=== PATIENT | female | born 1985 | race Caucasian/White ===

== ENCOUNTER 2020-02-14 09:37 | Outpatient (NON) | payer OTHER, SELFPAY ==
[2020-02-14 21:15] LABS: SARS-CoV-2 RNA PCR Negative
== END 2020-02-14 09:38 ==
PROVIDERS: Physician Assistant; Visit Provider Family Medicine
DX: Z20.828 Contact with and (suspected) exposure to other viral communicable diseases (principal); R68.89 Other general symptoms and signs
CPT/HCPCS: 87635; C9803; U0003

== ENCOUNTER 2021-10-26 12:18 | Outpatient (CLI) | payer OTHER, SELFPAY ==
--- NOTE | ~2021-10-26 | CT_ITS ---
EXAMINATION: CT soft tissue neck wo con DATE: 10/26/2021 12:36 INDICATION: Neck mass. TECHNIQUE: Computed tomography (CT) of the neck was performed without intravenous contrast. Automated exposure control and iterative reconstruction technique were employed. The dose-length product was 4 26.24 mGy-cm. COMPARISON: None FINDINGS: There is anteroposterior elongation of left ocular globe. There is mucosal thickening in th e paranasal sinuses. There are no pathologically enlarged lymph nodes. The mastoid air cells are norm al. There is mild cervical spondylosis. IMPRESSION: 1. No abnormal neck mass or lymphadenopathy. Reviewed, dictated and finalized at location A.
== END 2021-10-26 12:19 ==
LOC: MICIMG 12:19
PROVIDERS: PCP Family Medicine; Visit Provider Family Medicine
DX: R22.1 Localized swelling, mass and lump, neck (principal)
CPT/HCPCS: 70490

== ENCOUNTER 2022-04-21 10:10 | Outpatient (CLI) | payer OTHER, SELFPAY ==
--- NOTE | ~2022-04-21 | CT_ITS ---
EXAMINATION: CT abdomen pelvis wo/w con DATE: 04/21/2022 10:57 INDICATION: Ureteral calculus, renal cyst TECHNIQUE: Computed tomography (CT) of the abdomen and pelvis was performed without intravenous contr ast. CT of the abdomen and pelvis was then performed with a total of 130 mL Omnipaque 350 intravenous contrast using a double-bolus technique for simultaneous opacification of the renal parenchyma and r enal collecting system. The dose-length product (DLP) was 1152.05 mGy-cm. Automated exposure control and iterative reconstruction technique were employed. COMPARISON: None FINDINGS: Minimal dependent atelectasis is present in the lung bases. The heart size is normal. A 4 m m nodule in the right lower lobe likely represents old granulomatous disease. Cysts of the liver cassandra ure up to 6 mm. The spleen, pancreas, gallbladder, and adrenal glands are normal. No stones are ident ified in the kidneys, ureters, or bladder. No hydronephrosis or hydroureter. There is a 2.9 x 1.9 cm mass of the right kidney upper pole which demonstrates borderline enhancement after contrast administ ration. Small cysts of the kidneys measure up to 9 mm on the left. No pathologically enlarged abdomin al or pelvic lymph nodes are identified. There is no free intraperitoneal gas or evidence of bowel ob struction. The appendix is normal. IMPRESSION: 1. 2.9 cm solid mass versus proteinaceous cyst of the right kidney upper pole. Follow-up CT or MRI wi thout and with contrast in six months is recommended. No urolithiasis identified. Reviewed, dictated and finalized at location B. OND SETTER APPRENTICE IMPRESSION: 1. 2.9 cm solid mass versus proteinaceous cyst of the right kidney upper pole. Follow-up CT or MRI without and with contrast in six months is recommended. No urolithiasis identified.
[2022-04-21 10:37] LABS: Estimated Glomerular Filt Rate > 60
== END 2022-04-21 10:11 ==
PROVIDERS: PCP Family Medicine; Visit Provider Urology
DX: N20.1 Calculus of ureter (principal)
CPT/HCPCS: 74178; Q9967

== ENCOUNTER 2022-05-10 13:37 | Outpatient (CLI) | payer OTHER, SELFPAY ==
--- NOTE | ~2022-05-10 | MR_ITS ---
EXAMINATION: MR abdomen wo/w con INDICATION: Acquired complex renal cyst TECHNIQUE: Coronal SSFSE ARC, WATER:coronal LAVA-FLEX, Coronal 2D FIESTA FatSat, Axial SSFSE BH ARC, Axial 3D DualEcho BH, Axial SSFSE-IR, Axial DWI b=500, Axial 2D FIESTA FatSat, pre and dynamic postco ntrast Axial LAVA ARC, postcontrast Coronal In and Opposed phase LAVA FLEX COMPARISON: CT, 04/21/2022 CONTRAST: Multihance, 15 cc FINDINGS: There are multiple tiny cysts of the liver which measure up to 5 mm. The spleen, pancreas, gallbladder, and adrenal glands are normal. There is a 2.9 x 2.1 cm T1 hyperintense, T2 hypointense m ass of the right kidney upper pole which does not demonstrate enhancement after contrast administrati on. Simple cysts of the kidneys measure up to 1.6 cm on the left. There are no pathologically enlarge d abdominal lymph nodes. No dilated loops of bowel are identified. There is no hydronephrosis or hydr oureter. No abnormal enhancement is identified after contrast administration. IMPRESSION: 1. Hemorrhagic cyst of the right kidney upper pole corresponding to the mass in question on recent CT . Reviewed, dictated and finalized at location B. IFIED ATHLETIC TRAINER IMPRESSION: 1. Hemorrhagic cyst of the right kidney upper pole corresponding to the mass in question on recent CT.
== END 2022-05-10 13:38 ==
LOC: MICIMG 13:38
PROVIDERS: PCP Family Medicine; Visit Provider Urology
DX: N28.1 Cyst of kidney, acquired (principal)
CPT/HCPCS: 74183; A9577

== ENCOUNTER 2022-05-14 02:03 | Day surgery (SDC) | payer OTHER, SELFPAY ==
[2022-05-04 15:05] VITALS: BMI 28.8
--- NOTE | 2022-05-04 15:10 | PC.NURSE ---
Report to the Outpatient Waiting Room, entrance under the green pavilion located off [facility], at time 1230 on date 05/14/22. Planned Procedure Time: 1430. Time changes happen often and if your time is changed the preop area will call you the afternoon before. - You and your visitor will be asked to self-screen and do not enter if you have any COVID symptoms. - Only one visitor is requested with a max of two and NO children visitors are allowed at this time. - The patient visitor may be requested to leave or wait in car when not with patient due to distancing restrictions. - A mask is optional within the hospital at this time. Patients may have clear liquids (water, carbonated beverages, clear teas, apple juice) until 3 hours prior to surgery with a maximum of 20 ounces. - No food from midnight until time of surgery Take the following medications with a SIP of water the morning of surgery: BUPROPION DO NOT STOP ANY OF YOUR OTHER PRESCRIPTION MEDICATIONS PRIOR TO SURGERY EXCEPT THE FOLLOWING Medications to discontinue per physician: N/A Date to take last dose: N/A Please no make-up, nail faroese, hairspray, perfume, deodorant, or body powder the day of surgery. No jewelry (including any body piercings) or valuables the day of surgery, leave them at home. Please take a shower or bath the night before, or the morning of, surgery with an antibacterial soap. Wear comfortable, loose fitting clothing. - Jewelry must be removed prior to entering the operating room. Rings and piercings that are not removed may be cut off. - The hospital will not accept responsibility for valuables. - Please leave all valuables, including medications, at home the day of surgery. If you are going home after surgery, a licensed hammer driver must drive you home. - NO public transportation without another adult if you receive anesthesia. - We recommend that an adult stay with you for 24 hours following discharge. - We also recommend that you do not drive, make important decision, drink alcoholic beverages, or take any drugs that were not prescribed by your health care provider for at least 24 hours after your discharge time. Follow any additional instructions given to you from your surgeon. If you or anyone in your household have experienced Covid symptoms in the past week, please notify your surgeon or the nurse liaison at the phone number below for possible testing. Telephone instructions given to PT - GERHARD JENKINS and asked if any additional questions and then verbalized understanding. Patient advised to call surgeon office or pre surgery nurse liaison [phone] if any additional questions.
--- NOTE | 2022-05-11 11:43 | P.HP_ITS ---
H&P: HPI History of Present Illness Date/Time: 05/11/22 11:43 Chief Complaint: Desires permanent sterilization Narrative: A 37-year-old 1 para 1 admitted for laparoscopic tubal ligation secondary to desired permanent sterilization. She understands this to be permanent irreversible. Alternatives including but not exclusive of pills, patches, injections, implants etc. were reviewed. The a rate of 06/999 given. Risks and benefits of the procedure were reviewed as well. She received the ACOG handout entitled sterilization for men and women. She had all questions answered. She asked to proceed [facility] Family History Family History Grandparent Family history of malignant neoplasm of breast Mother Patient's mother is in good health Father Patient's father is in good health Sibling Patient's brother is in good health Social History Social History Social History: Single Smoking status: Never smoker Second hand tobacco smoke exposure: No Alcohol intake: current Alcohol use details: 2/MONTH Substance use: never Substance use type: does not use Living arrangements: with family Additional living arrangements comments: SON Occupation/Education: occupation Gender identity (if verbalized by the patient): Female Sexual Orientation (if Verbalized by the Patient): Straight or Heterosexual Spiritual care concerns: No Meds Home Medications and Allergies Home Medications Medication Instructions Recorded Confirmed Type norethindrone 1 mg-ethinyl 1 tablet PO DAILY 09/18/20 05/04/22 History estradiol 35 mcg tablet (Nortrel) dextroamphetamine-amphetamine ER 10 mg PO DAILY #30 caps 04/16/22 05/04/22 Rx 10 mg 24hr capsule,extend release (Adderall XR) bupropion HCl 100 mg tablet,12 hr 100 mg PO BID #60 tabs 05/01/22 05/04/22 Rx sustained-release (Wellbutrin SR) Allergies Allergy/AdvReac Type Severity Reaction Status Date / Time No Known Allergies Allergy Verified 05/04/22 15:04 Exam Const: General: cooperative, healthy appearing, comfortable and average body habitus Orientation/consciousness: oriented to person, oriented to place and oriented to time HENMT: Head: normal to inspection Resp: Effort & Inspection: normal respiratory effort Cardio: Rate: regular rate Rhythm: regular rhythm Heart sounds: S1 normal heart sound present and S2 normal heart sound present GI: Inspection: normal to inspection : External Female Exam: normal external appearance Speculum Exam - Vagina: normal appearance of the vagina Speculum Exam - Cervix: normal appearance of the cervix Bimanual exam- vagina & uterus: non-tender Bimanual Exam- Adnexa, other: normal adnexae Assessment and Plan Assessment and plan (1) Sterilization: Code(s): Z30.2 - Encounter for sterilization Status: Acute Plan Laparoscopic bilateral tubal ligation
[2022-05-14] VITALS (12 sets, daily range): BP systolic 119–172; BP diastolic 80–107; PULSE 74–99; RESP 12–20; TEMP 36.3–37.3; O2SAT 94–100
--- NOTE | 2022-05-14 06:41 | WPDHPUPDATE1 ---
History and Physical Update Update Date/Time: 05/14/22 06:41 History and Physical has been reviewed, including an updated exam of the patient. There are NO changes in the patient's condition. Risks, benefits, and alternatives have been discussed and questions answered. Patient agrees to proceed with procedure.
[2022-05-14] MEDS: ACETAMINOPHEN 500 MG TABLET 1000 MG PO (12:05)
[2022-05-14] MEDS: LACTATED RINGERS 1,000 ML 30 ML IV CONT ×2 (12:10→15:40)
[2022-05-14] MEDS: KETOROLAC 15 MG/ML VIAL (*BKC) IV PUSH ×2 (12:11→18:01)
--- NOTE | 2022-05-14 14:34 | P.PNAN_ITS ---
Anes - Initial Pre Proc Eval Procedure: Operation Date: 05/14/22 14:30 Proposed Procedures p Laparoscopic Bilateral Tubal Sterilization - Eloy Olivera MD Date/Time: 05/14/22 14:34 Surgeon: Eloy Olivera MD Pre Op Diagnosis: Desires Sterilization Patient Data Age: 37 Gender: F Height: 1.56 m Weight: 67 kg Last Vital Signs Temp 37.3 C 05/14/22 11:46 Pulse 99 05/14/22 11:46 Resp 20 05/14/22 11:46 BP 119/80 05/14/22 11:46 Pulse Ox 98 05/14/22 11:46 O2 Del Method Room Air 05/14/22 11:46 Allergies Allergy/AdvReac Type Severity Reaction Status Date / Time No Known Allergies Allergy Verified 05/04/22 15:04 Home Medications Medication Instructions Recorded Confirmed Type norethindrone 1 mg-ethinyl 1 tablet PO DAILY 09/18/20 05/14/22 History estradiol 35 mcg tablet (Nortrel) dextroamphetamine-amphetamine ER 10 mg PO DAILY #30 caps 04/16/22 05/14/22 Rx 10 mg 24hr capsule,extend release (Adderall XR) bupropion HCl 100 mg tablet,12 hr 100 mg PO BID #60 tabs 05/01/22 05/14/22 Rx sustained-release (Wellbutrin SR) hydrocodone 5 mg-acetaminophen 325 1 tablet PO Q4H PRN pain #20 tabs 05/14/22 Rx mg tablet Patient hx anesthesia problems: none Family hx anesthesia problems: none Results Review: All pre-operative results and documents have been reviewed as part of the pre- operative evaluation. [facility] Past Medical History Medical History (Updated 05/14/22 @ 14:34 by Eloy Ashby MD) Anxiety Family History Family History Grandparent Family history of malignant neoplasm of breast Mother Patient's mother is in good health Father Patient's father is in good health Sibling Patient's brother is in good health Social History Social History Social History: Single Smoking status: Never smoker Second hand tobacco smoke exposure: No Alcohol intake: current Alcohol use details: 2/MONTH Substance use: never Substance use type: does not use Living arrangements: with family Additional living arrangements comments: SON Occupation/Education: occupation Gender identity (if verbalized by the patient): Female Sexual Orientation (if Verbalized by the Patient): Straight or Heterosexual Spiritual care concerns: No Anes - Eval Final PreProcedure Day of Procedure 05/14/22 14:34 Patient weight: overweight Heart: regular rate and rhythm Lungs: clear to auscultation Airway: Mallampati scale class II Neurological: alert and oriented Last oral intake: >/= 8 hours ASA classification: II Emergent: no Anesthetic plan: proceed Anesthesia type and monitoring: general ETT and standard monitoring Results Review: All pre-operative results and documents have been reviewed as part of the pre- operative evaluation. Informed Consent: The patient's anesthetic plan and its attendant risks and benefits were discussed with the patient/family/POA. Questions were solicited and answers provided to the satisfaction of the patient/family/POA.
--- NOTE | 2022-05-14 15:26 | W.PM.PROC2 ---
Procedure Note - Detailed Date of Procedure 05/14/22 Pre-op Diagnosis Desires Sterilization Post-op Diagnosis Same Procedure Performed Laparoscopic bilateral tubal ligation with silastic ring Surgeon Eloy Olivera MD Anesthesia General Indications say 37-year-old female desires permanent sterilization Findings ovaries tubes Description of Procedure patient is prepped draped sterile fashion placed in dorsal lithotomy position a anesthesia weighted speculum placed in posterior fornix vagina. Anterior lip of the cervix grasped with single-tooth tenaculum. The Quinn's cannula was inserted the cervix. The 2 were joined to be used later for uterine relation. Bladder emptied of clear urine in the weighted speculum was removed. Gloves were changed An infraumbilical incision made the Veress needle passed in the abdomen. Abdomen filled with CO2 gas [id number]. The 5mm trocar advanced under direct visualization assuring no injury. The patient placed in Trendelenburg and a suprapubic incision made. The 8mm trocar advanced under direct visualization assuring no injury. The uterus ovaries and tubes were within normal limits and photo documentation was undertaken. The right fallopian tube was grasped with midportion and a good knuckle of tube formed using a silastic band. Excellent placement was seen with good blanching. The left fallopian tube was then grasped and a good knuckle of tube formed with a silastic band and good blanching was seen there. Photo documentation under the gas removed from the abdomen. The lower site removed. The incisions closed with 4-0 Monocryl and glue. The patient was awakened went to recovery in satisfactory condition. All sponge, needle, instrument counts were correct. There were no immediate complications noted Estimated Blood Loss 5 Drains No Packing No Pathology None sent Complications No immediate complications Condition Stable Disposition PACU
[2022-05-14] MEDS: fentaNYL CITRATE INJ (*CRX) 100 MCG/2 ML VIAL 25 MCG IV PUSH ×8 (15:55→16:20)
[2022-05-14] MEDS: ONDANSETRON INJ 4 MG/2 ML VIAL IV PUSH (16:00)
[2022-05-14] MEDS: HYDROmorphone HCL INJ (*CRX) 1 MG/ML SYR 0.5 MG IV PUSH ×4 (16:23→17:07)
[2022-05-14] MEDS: oxyCODONE HCL (*CRX) 5 MG TAB IR PO (17:46)
== END 2022-05-14 18:40 | disposition home or self-care (01) ==
PROVIDERS: PCP Family Medicine; Visit Provider Obstetrics & Gynecology
PROC: (CPT 58671; principal; 2022-05-14 14:30)
DX: Z30.2 Encounter for sterilization (principal); F41.9 Anxiety disorder, unspecified
CPT/HCPCS: 58671; A4264; A9270; J0330; J1100; J1170; J1885; J2250; J2405; J2704; J3010; J7030; J7120

== ENCOUNTER 2023-12-29 12:46 | Outpatient (CLI) | payer OTHER, SELFPAY ==
[2023-12-29 14:04] LABS: Hemoglobin 13.8 g/dL (12.0-15.0)
== END 2023-12-29 12:47 | disposition home or self-care (01) ==
PROVIDERS: PCP Family Medicine; Visit Provider Obstetrics & Gynecology
DX: R58 Hemorrhage, not elsewhere classified (principal)
CPT/HCPCS: 36415; 85014; 85018

== ENCOUNTER 2024-01-06 00:32 | Day surgery (SDC) | payer OTHER, SELFPAY ==
--- NOTE | 2023-12-27 15:38 | SUR.PREOP ---
Report to the Outpatient Waiting Room, entrance under the green pavilion located off [facility], at time _1:30pm_ on date _01/06/24_. Planned Procedure Time: _3:30pm_.? Time changes happen often and if your time is changed the preop area will call you the afternoon before. - You and your visitor will be asked to self-screen and do not enter if you have any COVID symptoms. Please call surgeon if you need to reschedule. - A mask is optional within the hospital at this time. Patients may have clear liquids (water, carbonated beverages, clear teas, apple juice) until 3 hours prior to surgery with a maximum of 20 ounces. - No food from midnight until time of surgery and no smoking - Infants may have breast milk until 4 hours before surgery, infant formula 6 hours prior to surgery. - Children will be allowed to drink immediately following surgery.? If applicable, please bring a bottle or sippy cup to assist with drinking. Juice, water, soda, and popsicles are readily available.? For infants on formula, please bring formula the day of surgery.? Pacifiers are allowed. Take only the following medications with a SIP of water on the morning of surgery: _bupropion__ DO NOT STOP ANY OF YOUR OTHER PRESCRIPTION MEDICATIONS PRIOR TO SURGERY EXCEPT THE FOLLOWING Medications to discontinue per physician __ibuprofen __ Date to take last dose_Per Dr. Juvencio Olivera_ Please no make-up, nail swiss, hairspray, perfume, deodorant, or body powder the day of surgery.? No jewelry (including any body piercings) or valuables the day of surgery, leave them at home.? Please take a shower or bath the night before, or the morning of, surgery with an antibacterial soap.? Wear comfortable, loose fitting clothing.? Children are encouraged to wear pajamas. - Jewelry must be removed prior to entering the operating room.? Rings and piercings that are not removed may be cut off. - The hospital will not accept responsibility for valuables.? - Please leave all valuables, including medications, at home the day of surgery. If you are going home after surgery, a licensed truck driver supervisor must drive you home.? - NO public transportation without another adult if you receive anesthesia. - We recommend that an adult stay with you for 24 hours following discharge. - We also recommend that you do not drive, make important decision, drink alcoholic beverages, or take any drugs that were not prescribed by your health care provider for at least 24 hours after your discharge time. For Pediatric surgeries, we recommend two adults accompany the child home. Follow any additional instructions given to you from your surgeon. Telephone instructions given to _Beatriz Manuel_and asked if any additional questions and then verbalized understanding. Patient advised to call surgeon office or pre surgery nurse liaison [phone] if any additional questions.
[2023-12-27 16:10] VITALS: BMI 25.1
--- NOTE | 2024-01-04 16:31 | PM.IMHP ---
H&P: HPI History of Present Illness Date/Time: 01/04/24 16:31 Chief Complaint: Heavy bleeding Narrative: 38-year-old 1 para 1 admitted for hysteroscopy/dilatation curettage/Rosana ablation. She is status post tubal ligation. She has poor candidate for oral contraception and has not done well with Nortrel control. She will undergo the above-named procedures. Risks and benefits reviewed including but not exclusive of , aspiration pneumonia, bleeding, transfusion, perforation injury to bowel, bladder, ureters, or other interval organs with need for open laparotomy. She received the ACOG handouts entitled hysteroscopy and dilatation curettage respectively. She also received the Rosana handout. She had all questions answered. She asked to proceed [facility] Past Medical History Medical History Anxiety Family History Family History Grandparent Family history of malignant neoplasm of breast Mother Patient's mother is in good health Father Patient's father is in good health Sibling Patient's brother is in good health Social History Social History Social History: Single Smoking status: Never smoker Second hand tobacco smoke exposure: No Alcohol intake: current Alcohol use details: socially; less than one a week on average Substance use: never Substance use type: does not use Living arrangements: with family Additional living arrangements comments: with son Occupation/Education: occupation Gender identity (if verbalized by the patient): Female Sexual Orientation (if Verbalized by the Patient): Straight or Heterosexual Spiritual care concerns: No Meds Home Medications and Allergies Home Medications Medication Instructions Recorded Confirmed Type bupropion HCl 300 mg 24 hr tablet, 300 mg PO QAM #90 tabs 03/23/23 12/27/23 Rx extended release (Wellbutrin XL) ibuprofen 400 mg tablet 400 mg PO Q6H PRN Cramps 12/27/23 12/27/23 History norethindrone 1 mg-ethinyl See Rx Instructions .Route .COMPLEX 12/27/23 12/27/23 History estradiol 35 mcg tablet (Nortrel) Allergies Allergy/AdvReac Type Severity Reaction Status Date / Time No Known Allergies Allergy Verified 12/27/23 15:57 Exam Const: General: cooperative, healthy appearing, comfortable and average body habitus Orientation/consciousness: oriented to person, oriented to place and oriented to time Resp: Effort & Inspection: normal respiratory effort Cardio: Rate: regular rate Rhythm: regular rhythm Heart sounds: S1 normal heart sound present and S2 normal heart sound present GI: Inspection: normal to inspection : External Female Exam: normal external appearance Speculum Exam - Vagina: normal appearance of the vagina Speculum Exam - Cervix: normal appearance of the cervix Bimanual exam- vagina & uterus: enlarged Bimanual Exam- Adnexa, other: normal adnexae Assessment and Plan Assessment and plan (1) Excessive bleeding: Code(s): R58 - Hemorrhage, not elsewhere classified Status: Acute Assessment and Plan: Hysteroscopy/dilatation curettage/the nerve ablation
--- NOTE | 2024-01-06 06:36 | WPDHPUPDATE1 ---
History and Physical Update Update Date/Time: 01/06/24 06:36 History and Physical has been reviewed, including an updated exam of the patient. There are NO changes in the patient's condition. Risks, benefits, and alternatives have been discussed and questions answered. Patient agrees to proceed with procedure.
[2024-01-06 11:37] VITALS: BP 124/83; PULSE 71; RESP 16; TEMP 36.4; O2SAT 100
[2024-01-06] MEDS: LACTATED RINGERS 1,000 ML 30 ML IV CONT ×2 (11:45→13:54)
--- NOTE | 2024-01-06 13:05 | P.PNAN_ITS ---
Anes - Initial Pre Proc Eval Procedure: Operation Date: 01/06/24 13:30 Proposed Procedures p Hysteroscopy Dilation and Curettage, with Rosana Endometrial Ablation - Eloy Olivera MD Date/Time: 01/06/24 13:05 Surgeon: Eloy Olivera MD Pre Op Diagnosis: excessive bleeding Patient Data Age: 38 Gender: F Height: 1.56 m Weight: 59.55 kg Last Vital Signs Temp 97.6 F 01/06/24 11:37 Pulse 71 01/06/24 11:37 Resp 16 01/06/24 11:37 BP 124/83 01/06/24 11:37 Pulse Ox 100 01/06/24 11:37 O2 Del Method Room Air 01/06/24 11:37 Allergies Allergy/AdvReac Type Severity Reaction Status Date / Time No Known Allergies Allergy Verified 01/06/24 12:42 Home Medications Medication Instructions Recorded Confirmed Type bupropion HCl 300 mg 24 hr tablet, 300 mg PO QAM #90 tabs 03/23/23 01/06/24 Rx extended release (Wellbutrin XL) ibuprofen 400 mg tablet 400 mg PO Q6H PRN Cramps 12/27/23 01/06/24 History norethindrone 1 mg-ethinyl See Rx Instructions .Route .COMPLEX 12/27/23 01/06/24 History estradiol 35 mcg tablet (Nortrel) hydrocodone 5 mg-acetaminophen 325 1 tablet PO Q4H PRN pain #20 tabs 01/06/24 Rx mg tablet Patient hx anesthesia problems: none Family hx anesthesia problems: none Results Review: All pre-operative results and documents have been reviewed as part of the pre- operative evaluation. [facility] Past Medical History Medical History Anxiety Family History Family History Grandparent Family history of malignant neoplasm of breast Mother Patient's mother is in good health Father Patient's father is in good health Sibling Patient's brother is in good health Social History Social History Social History: Single Smoking status: Never smoker Second hand tobacco smoke exposure: No Alcohol intake: current Alcohol use details: socially; less than one a week on average Substance use: never Substance use type: does not use Living arrangements: with family Additional living arrangements comments: with son Occupation/Education: occupation Gender identity (if verbalized by the patient): Female Sexual Orientation (if Verbalized by the Patient): Straight or Heterosexual Spiritual care concerns: No Anes - Eval Final PreProcedure Day of Procedure 01/06/24 13:05 Patient weight: normal Heart: regular rate and rhythm Lungs: clear to auscultation Airway: Mallampati scale class II Neurological: alert and oriented Last oral intake: >/= 8 hours ASA classification: II Emergent: no Anesthetic plan: proceed Anesthesia type and monitoring: general GIVS and standard monitoring Results Review: All pre-operative results and documents have been reviewed as part of the pre- operative evaluation. Informed Consent: The patient's anesthetic plan and its attendant risks and benefits were discussed with the patient/family/POA. Questions were solicited and answers provided to the satisfaction of the patient/family/POA.
[2024-01-06] MEDS: LIDOCAINE HCL 1% LOCAL INJ 20 ML VIAL 10 ML INFILTRATE (13:43)
--- NOTE | 2024-01-06 13:53 | W.PM.PROC2 ---
Procedure Note - Detailed Date of Procedure 01/06/24 Pre-op Diagnosis excessive bleeding Post-op Diagnosis Same Procedure Performed Hysteroscopy / dilatation curettage/Rosana ablation Surgeon Eloy Olivera MD Anesthesia MAC and Local Indications 38-year-old female multiparous status post tubal ligation with bleeding refractory to medical therapy Findings uterus sounded to 8cm. Thick irregular endometrial tissue. Description of Procedure Patient was prepped and draped in the sterile fashion placed dorsal sedation weighted speculum placed in the posterior fornix of. Anterior lip of cervix a single-tooth uterus is noted retroverted and sounded 8cm. Serial dilatation with fragmented dilators performed followed by passage of PDA hysteroscope. No abnormalities were seen the uterus had irregular evidence of or other the uterus was scraped over the entire 360? removing a moderate amount of tissue. These instruments removed the Rosana instrument was placed at the appropriate settings and burned for 120seconds. The Rosana instrument was removed and the hysteroscope removed and replaced and a good burn was seen. The instruments withdrawn the patient went recovery in satisfactory condition. All sponge, needle, instrument counts were correct. There were no immediate complications Estimated Blood Loss 5 Drains No Packing No Pathology Yes Complications No immediate complications Condition Stable Disposition PACU
[2024-01-06 13:54] VITALS: BP 137/97; PULSE 92; RESP 14; O2SAT 98
[2024-01-06 14:18] VITALS: BP 127/86; PULSE 97; RESP 16; O2SAT 99
[2024-01-06 14:44] VITALS: BP 106/95; PULSE 87; RESP 16; O2SAT 100
[2024-01-09 14:24] LABS: BEDSIDEPREGUCG Negative (Negative)
== END 2024-01-06 15:04 | disposition home or self-care (01) ==
PROVIDERS: PCP Family Medicine; Visit Provider Obstetrics & Gynecology
PROC: 0U5B8ZZ Destruction of Endometrium, Via Natural or Artificial Opening Endoscopic (ICD-10-PCS; CPT 58563; principal; 2024-01-06 13:30)
DX: N92.0 Excessive and frequent menstruation with regular cycle (principal); F41.9 Anxiety disorder, unspecified
CPT/HCPCS: 58563; 88305; A9270; J1100; J2250; J2405; J2704; J3010; J7030; J7120

== ENCOUNTER 2024-05-07 11:51 | Outpatient (CLI) | payer OTHER, SELFPAY ==
--- NOTE | ~2024-05-07 | MM_ITS ---
EXAMINATION: MM screening lanny BI w claudia HISTORY: Screening TECHNIQUE: Craniocaudal and mediolateral oblique 3-D tomosynthesis images were obtained and synthetic 2-D images were generated. CAD analysis was submitted and interpreted. COMPARISON: No prior mammogram is available for comparison at this institution. BREAST PARENCHYMAL COMPOSITION: Dense: The breasts are extremely dense, which lowers the sensitivity of mammography. FINDINGS: There are asymmetries of both breasts, most prominent centrally in the left breast on CC vi ew and medially in the right breast on CC view. There are no suspicious calcifications or architectur al distortion. IMPRESSION: 1. Bilateral breast asymmetries. 2. Additional mammographic views and possible breast ultrasound are recommended. BI-RADS Category 0: Incomplete: Needs additional imaging evaluation. Reviewed, dictated and finalized at location A. AURANT WORKER IMPRESSION: 1. Bilateral breast asymmetries. 2. Additional mammographic views and possible breast ultrasound are recommended . BI-RADS Category 0: Incomplete: Needs additional imaging evaluation.
== END 2024-05-07 11:52 | disposition home or self-care (01) ==
PROVIDERS: PCP Family Medicine; Visit Provider Obstetrics & Gynecology
DX: Z12.31 Encounter for screening mammogram for malignant neoplasm of breast (principal); R92.8 Other abnormal and inconclusive findings on diagnostic imaging of breast
CPT/HCPCS: 77063; 77067

== ENCOUNTER 2024-05-30 09:52 | Outpatient (CLI) | payer OTHER, SELFPAY ==
--- NOTE | ~2024-05-30 | MMUS_ITS ---
EXAMINATION: MM diagnostic lanny BI w claudia, US breast BI complete HISTORY: Follow-up breast asymmetries TECHNIQUE: Additional 3-D tomosynthesis images of the breasts were performed and synthetic 2-D images were generated. CAD analysis was submitted and interpreted. High resolution bilateral complete breas t ultrasound was performed. COMPARISON: 05/07/2024 BREAST PARENCHYMAL COMPOSITION: Dense: The breasts are extremely dense, which lowers the sensitivity of mammography. FINDINGS: MAMMOGRAPHIC FINDINGS: There are no suspicious masses, calcifications or architectural distortion in either breast to sugges t malignancy. Bilateral breast asymmetries compress with spot views, compatible with superimposed fib roglandular tissue. ULTRASOUND: Complete US of all 4 quadrants of the breast/s and retroareolar region was reviewed. Normal heterogen eous echotexture without focal solid or cystic mass. IMPRESSION: 1. No evidence for malignancy in either breast. 2. Routine yearly screening mammogram and regular clinical breast examination are recommended. BI-RADS Category 1: Negative Reviewed, dictated and finalized at location B. [place] SALESPERSON IMPRESSION: 1. No evidence for malignancy in either breast. 2. Routine yearly screening mammogram and regular clinical breast examination a re recommended. BI-RADS Category 1: Negative
== END 2024-05-30 09:53 | disposition home or self-care (01) ==
LOC: MICIMG 09:53
PROVIDERS: PCP Family Medicine; Visit Provider Obstetrics & Gynecology
DX: R92.8 Other abnormal and inconclusive findings on diagnostic imaging of breast (principal)
CPT/HCPCS: 76641; 77062; 77066; G0279

== ENCOUNTER 2025-02-14 12:18 | Outpatient (CLI) | payer OTHER, SELFPAY ==
--- OUTSIDE RECORDS SUMMARY | 1999-08-18 09:45 | XMS_ITS | Continuity of Care Document ---
Author Organization [facility] Address [address] [place] [address] Phone Care Team Providers Care Medical Billing Specialist Name Role Phone Palacio OD, Trent Unavailable Unavailable Advance Directives Directive Yes / No Effective Date File Name No Information Encounters Encounter Description Practice Location Reason(s) For Visit Diagnoses Date Provider Providers Copied on Encounter [facility], [address], [place], [place], [id number], [place] tel:[phone] [facility] No Information May-0 9-200 0 Palacio OD Trent. [address] , [address], [place], [address], [place]. tel:[phone] Family History Family Member Type Diagnosis Age At Onset No Information Payers Payer name Insurance type Covered democrat ID Authoriza tion(s) No Information Social History Type Description Quantity Date Captured Comments Sex Female Smoking Status No Information Chief Complaint And Reason For Visit No Information Reason For Referral Reason For Referral No Information History Of Present Illness Encounter Date Complaint History Of Prese nt Illness No Information Functional Status Date Functional Assessmen t No Information Instructions Date Instruction Additional Infor mation No Information Assessments Type Assessment Date No Information Patient Care Teams Name Effective Dates (start - stop) Status Members No Information
--- OUTSIDE RECORDS SUMMARY | 2016-10-20 18:00 | XMS_ITS | Continuity of Care Document ---
Author Organization [facility] Address [address] [place] [address] Phone Care Team Providers Care Pantograph Ii Engraver Name Role Phone Unavailable Unavailable Unavailable Advance Directives Directive Yes / No Effective Date File Name No Information Encounters Encounter Description Practice Location Reason(s) For Visit Diagnoses Date Provider Providers Copied on Encounter [facility], [address] [facility], [place], [place], [id number], [place] tel:[phone] [facility] No Information 7 No Information Referring Provider: JOSE Hale, [address], [place], [address]. tel:[phone] Family History Family Member Type Diagnosis Age At Onset No Information Payers Payer name Insurance type Covered libertarian ID Authoriza tion(s) [facility] POS [id number] CI [id number] Social History Type Description Quantity Date Captured Comments Sex Female Smoking Status No Information Chief Complaint And Reason For Visit No Information History Of Present Illness Encounter Date Complaint History Of Prese nt Illness No Information Instructions Date Instruction Additional Infor mation No Information Assessments Type Assessment Date No Information
[2025-02-14 14:21] LABS: Hematocrit 42.0 % (37.0-47.0); Hemoglobin 13.1 g/dL (12.0-15.0); Immature Granulocyte Percent A 0.4 % (0-0.5); Lymphocytes Absolute Auto 2.66 K/mm3 (0.9-3.2); Mean Corpuscular HGB Conc 31.2 g/dl (32-36); Mean Corpuscular Hemoglobin 28.4 pg (26-34); Mean Corpuscular Volume 91.1 fl (80-100); Nucleated Red Blood Cells Absolute Auto 0.000 K/mm3 (0.0-0.012); Nucleated Red Blood Cells Perc 0.0 % (0.0-0.2); Platelet Count Result 343 k/mm3 (150-375); Red Blood Count 4.61 M/mm3 (4.2-5.4); White Blood Count 11.0 K/mm3 (4.5-10.0)
[2025-02-14 14:43] LABS: Negative Monotest Control Negative (Negative); Positive Monotest Control Positive (Positive)
[2025-02-14 14:58] LABS: Alanine Aminotransferase 15 U/L (6-35); Albumin Level 4.3 g/dL (3.5-5.1); Alkaline Phosphatase 53 U/L (38-126); Anion Gap 8 mmol/L (4-12); Aspartate Amino Transferase 25 U/L (14-36); Bilirubin,Total 0.4 mg/dL (0.2-1.3); Blood Urea Nitrogen 8 mg/dL (7-17); Calcium 8.8 mg/dL (8.4-10.2); Carbon Dioxide 24 mmol/L (22-30); Chloride 103 mmol/L (98-107); Estimated Glomerular Filt Rate > 60; Glucose 64 mg/dL (65-110); Potassium 3.8 mmol/L (3.4-5.0); Sodium 135 mmol/L (137-145); Total Protein 7.3 g/dL (6.3-8.2)
[2025-02-14 15:30] LABS: Thyroid Stimulating Hormone 1.230 uIU/mL (0.465-4.680)
[2025-02-14 16:06] LABS: Vitamin B12 269.0 pg/mL (239-931)
--- OUTSIDE RECORDS SUMMARY | 2025-02-14 19:30 | XMS_ITS | Clinical Summary ---
Author Organization [facility] Address [address] [place] [address] Phone Care Team Providers Care Jewel Supervisor Name Role Phone Myra Do MD Primary Care Provider [phone] Allergies No known active allergies Medications amoxicillin (AMOXIL) 875 mg tablet Take 1 Tablet (875 mg) by mouth every 12 hours. 20 Tablet 08/06/2016 Active fluconazole (DIFLUCAN) 150 mg tablet Take 1 Tablet (150 mg) by mouth daily. 1 Tablet 2 08/06/2016 Active Active Problems Problem Noted Date Diagnosed Date Cervical high risk HPV (human papillomavirus) te st positive 06/01/2016 Family history of breast cancer 09/24/2015 Comments Yes Family History Medical History Relation Name Comments Healthy Father Breast Cancer Maternal Grandmother Breast Cancer Mother 55 Cancer Mother bladder Breast Cancer Paternal Grandmother Relation Name Status Comments Father Alive Maternal Grandmother Mother Alive Paternal Grandmother Social History Tobacco Use Types Packs/Day Years Used Date Smoking Tobacco: Never Smokeless Tobacco: Never Tobacco Cessation:Counseling Given: Yes Alcohol Use Standard Drinks/Week Comments Yes 0 (1 standard drink = 0.6 oz pur e alcohol) Comments Yes Sex and Gender Information Value Date Recorded Sex Assigned at Not on file Legal Sex Female 4:48 AM DIRECTOR OF RESEARCH Gender Identity Not on file Sexual Orientation Not on file Last Filed Vital Signs Vital Sign Reading Time Taken Comments Blood Pressure 120/68 07/21/2016 10:28 AM CDT Pulse 68 05/24/2016 3:58 PM DIRECTOR OF RESEARCH Temperature 37.2 C (99 F) 12/10/2015 1:06 PM CDT Respiratory Rate - - Oxygen Saturation - - Inhaled Oxygen Concentration - - Weight 60.8 kg (134 lb) 07/21/2016 10:28 AM CDT Height 154.9 cm (5' 1) 07/21/2016 10:28 AM CDT Body Mass Index 25.32 07/21/2016 10:28 AM CDT Plan of Treatment Health Maintenance Due Date Last Done Comments DTAP/TDAP/TD VACCINES (1 - Tdap) 2002 HEPATITIS B VACCINES (1 of 3 - 19+ 3-dose series) 01/09 HPV VACCINES (1 - 3-dose SCDM series) 2010 PAP SMEAR 05/24/2019 05/24/2016 CERVICAL CANCER SCREENING 05/24/2021 HPV/Cotest (21-29) 05/24/2021 05/24/2016 HPV/Cotest (30-65) 05/24/2021 05/24/2016 BREAST CANCER SCREENING 2023 Preventative Visit- Commercial 04/11/2024 05/24/2016 INFLUENZA VACCINE (#1) 2024 RSV VACCINE (60+ or ) (1 - 1-dose 75+ series) 2058 Procedures Procedure Name Priority Date/Time Associated Diagnosis Comments CERV/VAG CYTO SCREEN PAP W/HPV Routine 05/24/2016 3:56 PM DIRECTOR OF RESEARCH Well woman exam with routine gynecological exam Screening for cervical cancer Special screening examination for human papillomavirus (HPV) from Last 3 Months or Most Recently Relevant to Health Maintenance Results * (ABNORMAL) CERV/VAG CYTOPATH, THIN PREP SYSTEM CONTROLLER AND HPV (05/24/2016 3:56 PM DIRECTOR OF RESEARCH) CLINICAL INFORMATION HEALTHY 05/31/2016 7:38 AM DIRECTOR OF RESEARCH [facility] LAST MENSTRUAL PERIOD SEE COMMENT 05/31/2016 7:38 AM DIRECTOR OF RESEARCH [facility] Comment:INFORMATION NOT PROV IDED PREV PAP: SEE COMMENT 05/31/2016 7:38 AM DIRECTOR OF RESEARCH [facility] Comment:INFORMATION NOT PROV IDED PREV BX: SEE COMMENT 05/31/2016 7:38 AM DIRECTOR OF RESEARCH [facility] Comment:INFORMATION NOT PROV IDED SOURCE Endocervix 05/31/2016 7:38 AM DIRECTOR OF RESEARCH [facility] ADEQUACY: SEE COMMENT 05/31/2016 7:38 AM DIRECTOR OF RESEARCH [facility] Comment: Satisfactory for evaluation. Endocervical/transformation zone component absent. Age and/or menstrual status not provided PAP INTERP SEE COMMENT 05/31/2016 7:38 AM DIRECTOR OF RESEARCH [facility] Comment:Negative for intraep ithelial lesion or malignancy. COMMENT SEE COMMENT 05/31/2016 7:38 AM DIRECTOR OF RESEARCH [facility] Comment: This Pap test has been evaluated with computer assisted technology. VAULT CASHIER: SEE COMMENT 2016 7:38 AM DIRECTOR OF RESEARCH [facility] Comment: PCM, CT(ASCP) CT screening location: [place] [address] [place] [address] HPV E6/E7 Detected(A) Not Detected 05/31/2016 7:38 AM DIRECTOR OF RESEARCH [facility] Comment: This test was performed using the APTIMA HPV Assay ([employer] This assay detects E6/E7 viral messenger RNA (mRNA) from 14 high-risk HPV types (16,18,31,33,35,39,45,51,52,56,58,59,66,68). Genital SWAB OF ENDOCERVIX / Unknown Collection / Unknown 05/24/2016 3:56 PM DIRECTOR OF RESEARCH 05/24/2016 7:35 PM DIRECTOR OF RESEARCH Narrative [facility] - 05/31/2016 7:38 AM DIRECTOR OF RESEARCH Performing Organization Information: Site ID: [facility] Address: [facility] [place] [address] Director: Sky Curry MD Rama Lowe MD PATHOLOGY/CYTOLOGY ORDERABL ES Final Result [facility] from Last 3 Months or Most Recently Relevant to Health Maintenance Insurance [facility] OPTIONS PPO [id number] Care Teams Jewel Supervisor Relationship Specialty [place] [id number] [address] [place] [address] [address] [place] [address] PCP - General Family Practice 12/10/15
--- OUTSIDE RECORDS SUMMARY | 2025-02-14 19:30 | XMS_ITS | Clinical Summary ---
Author Organization [facility] [employer] Address [address] [place] [address] Care Team Providers Care Golf Cart Mechanic Name Role Phone Myra Do MD Primary Care Provider [phone] Source Comments [facility] [employer],non-owned Affiliates and Associated Physician Practices is amultiple site organization consisting of ambulatory clinics and hospital sitesin [place], [place], [place] and [place]. This disclosure is being madepursuant to the Care Everywhere program and may not contain all information available regarding this patient. Last updated 17.[facility] [employer] Allergies No known active allergies Medications * Be aware that medications may not be up to date on this document. Alwaysverify current medications with the patient. [id number] ( VITAMINS PO) Active Active Problems No known active problems Social History Tobacco Use Types Packs/Day Years Used Date Smoking Tobacco: Never Assessed Comments Unknown Sex and Gender Information Value Date Recorded Sex Assigned at Not on file Legal Sex Female 5:13 PM CDT Gender Identity Not on file Sexual Orientation Not on file Last Filed Vital Signs Vital Sign Reading Time Taken Comments Blood Pressure 108/64 08/02/2016 5:24 PM CDT Pulse 104 08/02/2016 5:24 PM CDT Temperature 36.8 C (98.3 F) 08/02/2016 5:24 PM CDT Respiratory Rate 20 08/02/2016 5:24 PM CDT Oxygen Saturation 92% 08/02/2016 5:24 PM CDT Inhaled Oxygen Concentration - - Weight 60.3 kg (133 lb) 08/02/2016 5:24 PM CDT Height 156.2 cm (5' 1.5) 08/02/2016 5:24 PM CDT Body Mass Index 24.72 08/02/2016 5:24 PM CDT Plan of Treatment Health Maintenance Due Date Last Done Comments LIPID TESTING 1983 MAMMOGRAM 1983 HIV SCREENING 1998 HEPATITIS C SCREENING 01/16/2001 DTAP/TDAP/TD VACCINES (1 - Tdap) 2002 HEPATITIS B VACCINE (1 of 3 - 19+ 3-dose series) 2002 PAP SMEAR 01/22/2004 HPV VACCINE (1 - 3-dose SCDM series) 2010 DEPRESSION SCREENING 04/11/2024 COVID-19 VACCINE (1 - 2023-2 5 season) 2024 INFLUENZA VACCINE (#1) 2024 ZOSTER VACCINE (1 of 2) 2033 HIB VACCINE Aged Out No longer eligi ble based on patient's age to complete this topic MENINGOCOCCAL (Group B) VACC INE SHARED DECISION-MAKING Aged Out No longer eligibl e based on patient's age to complete this topic MENINGOCOCCAL GROUPS A/C/Y/W VACCINE Aged Out No longer eligible b ased on patient's age to complete this topic PNEUMOCOCCAL VACCINE Aged Out No long er eligible based on patient's age to complete this topic Insurance [employer] Care Teams Golf Cart Mechanic Relationship Specialty Start Date End Date Myra Do MD PCP - General Family Medicine 08/02/16
--- OUTSIDE RECORDS SUMMARY | 2025-02-14 19:30 | XMS_ITS | Clinical Summary ---
Author Organization [facility] Address Formerly [facility] [place] [address] Care Team Providers Care Insolvency Practitioner Name Role Phone Alessandra Robin PA-C Primary Care Provider [phone] Allergies No known active allergies Medications NORTREL , 28, 1-35 MG-MCG tablet Take 1 tablet by mouth daily. 5 Active buPROPion XL (WELLBUTRIN XL) 300 MG 24 hr tablet Take 1 tablet (300 mg total) by mouth daily. Active probiotic (FLORAJEN3) Cap capsule Take 1 capsule by mouth 3 (three) times daily with meals. Active gabapentin (NEURONTIN) 300 MG capsuleIndicatio ns:External thrombosed hemorrhoids Take 1 capsule (300 mg total) by mouth every 6 (six) hours as needed. 12 capsule 5 Active lidocaine (XYLOCAINE) 2 % jellyIndications :External thrombosed hemorrhoids Apply topically as needed. 30 mL 5 Active Active Problems Problem Noted Date Diagnosed Date External thrombosed hemorrhoids 10/10/2024 Encounters Date Type Department Care Team Description 11/21/2024 3:20 PM CDT Office Visit [facility] General Surgery [address], [address] [place] [address] Thaddeus Jimenez MD Follow Up (4 week f/u excision thrombosed hemorrhoid 10/11/24) 11/21/2024 Travel from Last 3 Months Family History Relation Status Comments Father Alive Mother Alive Social History Tobacco Use Types Packs/Day Years Used Date Smoking Tobacco: Never Smokeless Tobacco: Never Tobacco Cessation:Counseling Given: No Alcohol Use Standard Drinks/Week Comments Yes 0 (1 standard drink = 0.6 oz pur e alcohol) rare PHQ-2 Answer Date Recorded Patient Health Questionnaire-2 Score 0 10/24/2024 Comments No Sex and Gender Information Value Date Recorded Sex Assigned at Female 10/10/2024 2:26 PM CDT Legal Sex Female 7:51 PM BRANCH SALES MANAGER Gender Identity Female 10/10/2024 2:26 PM CDT Sexual Orientation Straight 10/10/2024 2: 26 PM CDT Last Filed Vital Signs Vital Sign Reading Time Taken Comments Blood Pressure 136/90 11/21/2024 3:28 PM CDT Pulse 84 11/21/2024 3:15 PM CDT Temperature 36.6 C (97.9 F) 10/24/2024 1:33 PM CDT Respiratory Rate 16 10/24/2024 1:33 PM CDT Oxygen Saturation 98% 11/21/2024 3:15 PM CDT Inhaled Oxygen Concentration - - Weight 59 kg (130 lb) 10/11/2024 11:58 AM CDT Height 154.9 cm (5' 1) 10/11/2024 11:58 AM CDT Body Mass Index 24.56 10/11/2024 11:58 AM CDT Plan of Treatment Health Maintenance Due Date Last Done Comments Annual Physical 1986 Hepatitis C 2001 DTaP, Tdap and Td Vaccines ( 1 - Tdap) 2002 Hepatitis B Vaccines (1 of 3 - 19+ 3-dose series) 2002 HPV Vaccines (1 - 3-dose SCD M series) 2010 Cervical Cancer Screening Pa p Smear (Age 30 to 64) Every 3 Years 05/24/2019 05/24/2016 Cervical Cancer Screening Pa p with HPV Testing (Age 30 to 64) Every 5 Years 05/24/2021 05/24/2016 Cervical Cancer Screening wi th HPV 05/24/2021 Mammogram Screening 2023 COVID-19 Vaccine (3 - 2024-2 6 season) 2024 07/20/2020, 06/26/2020 Influenza Adult (#1) 2025 12/27/2019, 01/11/2019 PHQ-2 (Physician [place]) Completed 10/24/2024 Hepatitis A Vaccines Aged Out No long er eligible based on patient's age to complete this topic Meningococcal B Vaccine Aged Out No l onger eligible based on patient's age to complete this topic Meningococcal Vaccine Aged Out No sukhwinder pb eligible based on patient's age to complete this topic Pneumococcal Vaccine: Pediatrics (0 to 5 Years) and At-Risk Patients (6 to 49 Years) Aged Out No longer eligible b ased on patient's age to complete this topic RSV Immunizations Under 20 Months Aged Out No longer eligible b ased on patient's age to complete this topic Insurance [employer] Care Teams Insolvency Practitioner Relationship Specialty Start Date End Date Alessandra Robin PA-C [address] [place] [address] PCP - General Physician Hospice Office Coordinator Medical 10/10/24
== END 2025-02-14 12:19 | disposition home or self-care (01) ==
LOC: ANHLAB 12:19
PROVIDERS: PCP Family Medicine; Visit Provider Physician Assistant Medical
DX: R53.83 Other fatigue (principal); R59.1 Generalized enlarged lymph nodes
CPT/HCPCS: 36415; 80053; 82306; 82607; 82746; 84443; 85025; 86308